=== PATIENT | male | born 1950 | race Caucasian/White ===

== ENCOUNTER → 2018-05-25 | Day surgery (SDC) | payer MEDICARE, OTHER ==
[~2018-05-25] MED LIST: ASPIR 8181 MG PO; DEXILANT; FLOMAX0.4 MG PO; LIPITOR20 MG PO; MIDAZOLAM HCL 2 MG/2 ML VIAL ONE; NEXIUM40 MG PO; OR PHACO EYE KIT ONE; PLAVIX75 MG PO; PREOP PHACO EYE KIT ONE
== END | disposition home or self-care (01) ==
LOC: OR 12:34
PROVIDERS: ATTEND Ophthalmology
DX: H25.12 Age-related nuclear cataract, left eye (principal); I25.10 Atherosclerotic heart disease of native coronary artery without angina pectoris; K21.9 Gastro-esophageal reflux disease without esophagitis; K58.9 Irritable bowel syndrome, unspecified; N40.0 Benign prostatic hyperplasia without lower urinary tract symptoms; E78.5 Hyperlipidemia, unspecified; Z79.82 Long term (current) use of aspirin; Z87.442 Personal history of urinary calculi; Z95.5 Presence of coronary angioplasty implant and graft
CPT/HCPCS: 66984; J2250